=== PATIENT | male | born 1960 | race Caucasian/White ===

== ENCOUNTER 2017-08-15 22:30 | Emergency (ER) | payer OTHER ==
[~2017-08-15] VITALS: Ht 182.9 cm; Wt 104.1 kg
[~2017-08-15 22:30] MED LIST: BP MED; NAPR500 PO; TAB-TAB PO
[2017-08-15 22:36] VITALS: BP 182/95; PULSE 79; RESP 22; TEMP 97.9; O2SAT 96
[2017-08-15 22:52] VITALS: BP 182/95; PULSE 79; RESP 18; TEMP 97.9; O2SAT 96
[2017-08-15] MEDS ORDERED: SAWCAP2 PO (23:00)
[2017-08-15] MEDS ORDERED: LOSA100T PO (23:00)
[2017-08-15] MEDS ORDERED: D200CAP PO (23:00)
[2017-08-15] MEDS ORDERED: traMADol HCL 50 MG TAB PO ONE (23:15)
--- NOTE | 2017-08-15 23:27 | PD ---
HPI Chief Complaint: Musculoskeletal Complaint Time Seen by Provider: 23:04 Travel History International Travel<30 days: No Contact w/Intl Traveler<30days: No Traveled to known affect area: No History of Present Illness HPI 57-year-old male patient with no significant past medical issues, presents to the ER today because he states that for the last 3 days he's been having upper back pains. He states this started on its own. He states it worsens with movement. He had gone to a chiropractor a few days ago and had his back readjusted. He states that it was hurting more on the right side and now it's hurting more the left side. He denies any fevers, numbness, weakness, incontinence, or any other symptoms. He denies any IV drug use. He denies any injuries. Pain is currently rated as 6 out of 10. Worsens with movements. Modifying Factors: Worse with movements Associated Signs & Symptoms: Upper back pain Risk Factors: None PFSH Past Medical History Diminished Hearing: No Hypertension: Yes Immunizations Current: Yes Past Surgical History Tonsillectomy: Yes Social History Alcohol Use: Yes (OCC) Tobacco Use: No Substance Use: No Allergies-Medications (Allergen,Severity, Reaction): Coded Allergies: No Known Allergies (Verified Adverse Reaction, Unknown, 08/15/17) Reported Meds & Prescriptions Reported Meds & Active Scripts Active Reported Saw [place] Extract (Saw [place]-Zinc) 160-15 mg Cap 1 Cap PO DAILY D3 Super Strength (Cholecalciferol) 2,000 Unit Cap 2,000 Units PO BID Losartan (Losartan Potassium) 100 Mg Tab 100 Mg PO DAILY Review of Systems Except as stated in HPI: all other systems reviewed are Neg Physical Exam Narrative GENERAL: Well-developed middle age white male patient currently in no acute distress. Awake and oriented 3. SKIN: Focused skin assessment warm/dry. HEAD: Atraumatic. Normocephalic. EYES: Pupils equal and round. No scleral icterus. No injection or drainage. ENT: No nasal bleeding or discharge. Mucous membranes pink and moist. NECK: Trachea midline. No JVD. CARDIOVASCULAR: Regular rate and rhythm. No murmur appreciated. RESPIRATORY: No accessory muscle use. Clear to auscultation. Breath sounds equal bilaterally. GASTROINTESTINAL: Abdomen soft, non-tender, nondistended. Hepatic and splenic margins not palpable. MUSCULOSKELETAL: No obvious deformities. No clubbing. No cyanosis. No edema. BACK: No CVA tenderness. No rash. No point tenderness on palpation of the spine. There is mild tenderness to palpation in the T8-T9 area in the mid back region, no point tenderness, no step offs, no midline tenderness. NEUROLOGICAL: Awake and alert. No obvious cranial nerve deficits. Motor grossly within normal limits. Normal speech. PSYCHIATRIC: Appropriate mood and affect; insight and judgment normal. Data Data Last Documented VS Vital Signs Date Time Temp Pulse Resp B/P (MAP) Pulse Ox O2 Delivery O2 Flow Rate FiO2 08/15/17 22:55 20 08/15/17 22:52 97.9 79 182/95 (124) 96 Orders Orders Spine, Thoracic-Ap/Lat/Sw(3vw) (08/15/17 23:04) Tramadol (Ultram) (08/15/17 23:15) MDM Medical Decision Making Medical Screen Exam Complete: Yes Emergency Medical Condition: Yes Medical Record Reviewed: Yes Interpretation(s) Last 24 hours Impressions Thoracic Spine X-Ray 08/15/17 0722 Signed Impressions: Service Date/Time: Tuesday, August 15, 2017 23:07 - CONCLUSION: Slight scoliosis and mild multilevel degenerative changes. No fracture or subluxation of the thoracic spine. Blane Bianchi MD Differential Diagnosis Upper back pains: Muscle spasms versus acute fractures versus radiculopathy Narrative Course X-ray did not show any signs of acute injuries. At this point, my plan would be to release him with symptomatically relief or pain and muscle relaxant. Return for any worsening in pain or new symptoms as needed. The plan has been discussed with him and he states understanding. See primary care physician for any ongoing problems. Diagnosis Primary Impression: Back pain Med/Other Pt SpecificInfo: Prescription(s) given Scripts Ibuprofen (Motrin Ib) 200 Mg Tablet 600 MG PO QID Y for PAIN SCALE 1 TO 10, #20 Prov: Rey Mc MD 08/15/17 Cyclobenzaprine (Flexeril) 10 Mg Tab 10 MG PO TID for Muscle Spasm, #20 TAB 0 Refills Prov: Rey Mc MD 08/15/17 Disposition: 01 DISCHARGE HOME Condition: Stable Rey Mc MD Aug 15, 2017 23:27
--- NOTE | 2017-08-15 23:28 | RADRPT ---
EXAM DATE/TIME: 08/15/2017 23:07 [facility] COMPARISON: No previous studies available for comparison. INDICATIONS : Back pain. MEDICAL HISTORY : None. SURGICAL HISTORY : None. ENCOUNTER: Initial ACUITY: 2 days PAIN SCORE: 4/10 LOCATION: thoracic spine. FINDINGS: No fracture or subluxation of the thoracic spine. There is a very mild S-shaped thoracolumbar curvatu re. Thoracic portion of the curvature is dextroconvex, measures approximately 6 and is centered arou nd T7. Slight disc space narrowing with very mild anterolateral osseous ridging seen at most thoracic levels. CONCLUSION: Slight scoliosis and mild multilevel degenerative changes. No fracture or subluxation of the thoracic spine. Blane Bianchi MD on August 15, 2017 at 23:25 Board Certified Radiologist. This report was verified electronically.
[2017-08-15] MEDS ORDERED: IBUP-1129 PO (23:39)
[2017-08-15] MEDS ORDERED: CYCL10TA PO (23:39)
[2017-08-15 23:45] VITALS: BP 155/96
== END 2017-08-15 23:49 | disposition home or self-care (01) ==
LOC: PHED 22:30
DX: M54.9 Dorsalgia, unspecified (principal); I10 Essential (primary) hypertension
CPT/HCPCS: 72072; 99283